=== PATIENT | female | born 1990 | race Caucasian/White ===

== ENCOUNTER 2017-12-06 22:34 | Emergency (ER) | payer OTHER ==
[~2017-12-06] VITALS: Ht 160 cm; Wt 56.7 kg
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
--- NOTE | 2017-12-06 23:50 | NUR ---
ER MD PALACIOS AT BEDSIDE FOR EVAL
--- NOTE | 2017-12-06 23:55 | NUR ---
LAB AT BEDSIDE FOR BLOOD DRAW
--- NOTE | 2017-12-07 00:24 | NUR ---
PT IN STABLE CONDITION. VSS NAD. WILL CONTINUE TO MONITOR FOR ANY CHANGES DURING THE SHIFT
--- NOTE | 2017-12-07 00:53 | NUR ---
Dr. Patel at bedside for update on pt status w/ discharge instructions. Pt AOx4 w/ resp even & unlabored, ambulatory w/ steady gait w/ no acute distress noted. Patient discharged to home in stable condition. Written and verbal after care instructions given. Patient verbalizes understanding of instruction.
[2017-12-07 00:55] VITALS: BP 120/79
== END 2017-12-07 00:56 | disposition home or self-care (01) ==
LOC: ER 22:50
DX: F10.129 Alcohol abuse with intoxication, unspecified (principal); Z91.02 Food additives allergy status; Z90.89 Acquired absence of other organs; Y90.6 Blood alcohol level of 120-199 mg/100 ml
CPT/HCPCS: 36415; 80305; 99284; A4606; G0480; Z7610